=== PATIENT | male | born 1990 | race Caucasian/White ===

== ENCOUNTER 2020-08-13 11:34 | Emergency (ER) | payer SELFPAY ==
[2020-08-13 12:15] VITALS: BP 176/107; PULSE 95; RESP 21; TEMP 37.1; O2SAT 99; BMI 31.9
[2020-08-13 12:23] VITALS: BP 176/107; PULSE 95; RESP 21; TEMP 37.1; O2SAT 99
--- NOTE | 2020-08-13 12:23 | HMH.EDUTC ---
[facility] Disposition Clinical Impression: Encounter for laboratory testing for COVID-19 virus Disposition: Home, Self-Care Condition on Discharge: Good Instructions: DI for COVID-19 (Suspected or Confirmed ), Coronavirus Disease 2019, Preventing the Spread of Coronavirus Discharge Instructions Additional Instructions: *Monitor Temp, Over the counter Motrin or Tylenol as directed/as needed Tylenol every 4 hours and Motrin every 6 hours (as long as your family doctor has told you that you can take it) for fever or pain. and straight to ER if unable to lower temp less than 101.0 after medication given Follow up IMMEDIATELY for new or worsening symptoms or no Noticeable improvement over the next 48-72 hours. 911 for difficulty breathing or swallowing You were tested for today for COVID19 your test result should be back in the next 24-48 hours, you may call to the [facility] to see if your test results are back in the next 48 hours [phone] [facility] hours are 9am-9pm You was given a handout with instructions for Self Quarantine and Self isolation for while you wait on test results and what to do if they are positive If you are positive the Health Dept will be contacting you also Referrals: PCP,No [Primary Care Provider] - As needed Forms: Work/School Release Time of Disposition: 12:27 Medical Decision Making - Leonardo Inquiry Pt receiving controlled substance: No Leonardo was queried for this patient: No Vital Signs: 08/13/20 12:15 Temperature 98.7 F Temperature Source Oral Pulse Rate [Right Brachial] 95 H Respiratory Rate 21 Blood Pressure [Right Arm] 176/107 H Blood Pressure Mean [Right Arm] 130 Blood Pressure Source [Right Arm] Automatic Cuff Blood Pressure Position [Right Arm] Sitting 02 Sat by Pulse Oximetry 99 Oxygen Delivery Method Room Air Orders (Tests/Meds): ORDERS Category Date Time Status Covid-19 Nasal PCR Sendout P&C Stat Lab 08/13/20 11:37 Ordered Medical Decision Narrative: Patient report thinks his blood pressure is up due to being aggravated trying to get back to work reports wants to get checked and tested and will follow up with his PCP if his blood pressure is still elevated [facility] HPI - General Stated complaint: Covid test Time Seen by Provider: 08/13/20 12:23 Mode of Arrival: Ambulatory Source of Information: Patient Limitations: No Limitations Description of Symptoms (Recalled from Triage Doc. by RN): PATIENT STATES HIS JOB IS REQUESTING HIM TO GET HIS THROAT AND EARS CHECKED BEFORE RETURNING TO WORK D/T HIM HAVING A FEVER. REPORTS 2 RECENT NEGATIVE COVID TEST HEENT Symptoms (Recalled from RN notes): No Resp Symptoms (Recalled from RN notes): No Skin Symptoms (Recalled from RN notes): No MS Symptoms (Recalled from RN notes): No Functional Status (Recalled from RN notes): WNL - History of Present Illness Provider Complaint: Patient states that his blood pressure is up because he is aggrivated State that work wanted him to come and get checked out again before they would let him return to work States that he was exposed to COVID a couple weeks ago and has had two test last week that was negative but they wanted him to come get checked again due to he had a low grade fever last week at work Denies any symptoms - Related Data Previous Rx's Medication Instructions Recorded Minocycline HCl [Minocycline HCl 100 mg PO BID #20 tab 05/07/19 100mg Tab*] Allergies Allergy/AdvReac Type Severity Reaction Status Date / Time No Known Allergies Allergy Verified 11/14/18 21:59 - Worker's Comp Is this a Worker's Comp case?: No [facility] History - Hepatitis A Screen Drug use history?: No High risk sexual behaviors?: No History of sexually transmitted infection?: No Currently employed?: No Childcare worker?: No Do you have indoor plumbing?: Yes Do you have electricity?: Yes Attestation statement:: This patient has been screened for Hepatitis A risk factors. I have reviewed the
[2020-08-14 08:39] LABS: Covid-19 Nasal PCR Sendout P&C NEGATIVE
== END 2020-08-13 12:39 | disposition home or self-care (01) ==
PROVIDERS: Emergency Provider Nurse Practitioner
DX: Z20.822 Contact with and (suspected) exposure to COVID-19 (principal); R03.0 Elevated blood-pressure reading, without diagnosis of hypertension
CPT/HCPCS: 99202; G0463; U0004

== ENCOUNTER 2021-02-04 22:57 | Emergency (ER) | payer SELFPAY ==
[2021-02-04 23:21] VITALS: BP 210/105; PULSE 132; RESP 20; TEMP 37.9; O2SAT 99; BMI 32.8
--- NOTE | 2021-02-05 00:15 | XR_ITS ---
PROCEDURE INFORMATION: Exam: XR Left Shoulder Exam date and time: 02/05/2021 12:15 AM Age: 30 years old Clinical indication: Patient HX: PT pulled on an object working and now left shoulder pain; Additional info: Pain from pulling TECHNIQUE: Imaging protocol: XR Left shoulder. Views: 2 or more views. COMPARISON: No relevant prior studies available. FINDINGS: Bones/joints: Multiple irregular calcific densities noted superior to the proximal humerus including probably within supraspinatus tendon, compatible with calcific tendinopathy. No acute fracture or malalignment. Soft tissues: Normal. IMPRESSION: 1. Findings compatible with calcific tendinopathy, as above. 2. No acute fracture or malalignment.
--- NOTE | 2021-02-05 00:50 | HMH.EDUPEXT ---
ED Disposition Clinical Impression: Left shoulder tendonitis Acute shoulder bursitis Qualifiers: Laterality: left Qualified Code(s): M75.52 - Bursitis of left shoulder Hypertension Qualifiers: Hypertension type: primary hypertension Qualified Code(s): I10 - Essential (primary) hypertension Disposition: Home, Self-Care Condition on Discharge: Good Instructions: DI for Bursitis Additional Instructions: use meds and see pcp and ortho for follow up Prescriptions: predniSONE [Prednisone 20mg Tab] 20 mg PO BID #10 tab Transmission Status: Pending to [facility] #[id number] Ketorolac Tromethamine [Toradol 10mg tablet] 10 mg PO Q6HP PRN #10 tab MDD 40mg/day PRN Reason: Moderate To Severe Pain Transmission Status: Pending to [facility] #[id number] Referrals: Provider,Referral, [Primary Care Provider] - - Critical Care Critical Care Time: No Attestation: On 02/04/21, the high probability of a clinically significant, sudden or life threatening deterioration of the following system(s) required my full and direct attention, intervention and personal management. The time I documented below is in addition to time spent performing reported procedures but includes the following listed in this critical care notation. Medical Decision Making - Medical Records Medical records reviewed: Yes: I reviewed the patient's medical records. - Leonardo Inquiry Pt receiving controlled substance: No Vital Signs: 02/04/21 23:21 Temperature 100.3 F H Temperature Source Oral Pulse Rate [Right] 132 H Respiratory Rate 20 Blood Pressure [Right Arm] 210/105 H Blood Pressure Mean [Right Arm] 140 Blood Pressure Source [Right Arm] Manual Cuff/ Auscultation Blood Pressure Position [Right Arm] Sitting 02 Sat by Pulse Oximetry 99 Oxygen Delivery Method Room Air Orders (Tests/Meds): ED MEDICATIONS Discontinued Medications Generic Name Dose Route Start Last Admin Trade Name Freq PRN Reason Stop Dose Admin Clonidine HCl 0.2 mg 02/05/21 09:00 Clonidine 0.2mg Tablet PO 03/07/21 08:59 TID SIMIN Clonidine HCl 0.2 mg 02/05/21 00:56 02/05/21 00:57 Clonidine 0.2mg Tablet PO 02/05/21 00:57 0.2 mg ONCE ONE Administration Dexamethasone Sodium Phosphate 8 mg 02/05/21 01:06 02/05/21 01:11 Dexamethasone 4mg/Ml 1ml Vial IM 02/05/21 01:07 8 mg ONCE ONE Administration Ketorolac Tromethamine 60 mg 02/05/21 01:06 02/05/21 01:11 Ketorolac 60mg/2ml Vial IM 02/05/21 01:07 60 mg ONCE ONE Administration ORDERS Category Date Time Status XR shoulder LT min 2V Stat Exams 02/05/21 00:15 Taken - Radiology Data #1 Image(s): Shoulder Image Reviewed: Yes I reviewed the patient's radiology image Preliminary Findings: Abnormal (ca tendonitis ) Medical Decision Narrative: has acute lt shoulder pain prob bursitis/tendonitis - discussed bp with pt Upper Extremity HPI - General Chief Complaint: Extremity Injury, Upper Stated Complaint: [id number] injured lt shoulder Time Seen by Provider: 02/05/21 00:20 Mode of Arrival: Ambulatory Source of Information: Patient, Medical Record Limitations: No Limitations Description of Symptoms (Recalled from ER Triage Doc. by RN): Pt states he hurt his left shoulder yesterday morning, but he's not sure how. pt unable to lift arm without pain. No visible deformities noted. Pt is hypertensive, states he's not taking anything for his HTN, but he is supposed to. - History of Present Illness HPI narrative: pt with acute lt shoulder pain which has been progressive tonight with marked dec rom - does do multiple tasks at work with pulling and lifting and pushing MD complaint: injury to: left, shoulder Onset (ago): day(s) Other Extremity Injury: Left: shoulder Handedness: right Place: work Severity: moderate Exacerbating factors: movement of extremity Associated symptoms: denies other symptoms - Related Data Previous Rx's Medi
[2021-02-05 01:31] VITALS: BP 199/139; PULSE 89; RESP 18; TEMP 37.7; O2SAT 97
== END 2021-02-05 01:35 | disposition home or self-care (01) ==
PROVIDERS: Emergency Provider Emergency Medicine
DX: M75.52 Bursitis of left shoulder (principal); F17.210 Nicotine dependence, cigarettes, uncomplicated; X50.0XXA Overexertion from strenuous movement or load, initial encounter; Y92.69 Other specified industrial and construction area as the place of occurrence of the external cause; Y99.0 Civilian activity done for income or pay
CPT/HCPCS: 73030; 96372; 99282

== ENCOUNTER 2022-08-03 16:59 | Emergency (ER) | payer MEDICAID, SELFPAY ==
[2022-08-03 16:59] VITALS: BP 209/131; PULSE 124; RESP 18; TEMP 36.7; O2SAT 97; BMI 33.4
[2022-08-03 17:13] VITALS: BMI 33.4
--- NOTE | 2022-08-03 17:13 | ECG_ITS ---
APPROVED REPORT Exam: Resting ECG HR:119 bpm ECG Measurements Heart Rate 119 AXES [place] 132 P 56 QRSd 110 QRS 50 QT 313 T -1 QTc 384 Conclusion SINUS TACHYCARDIA POSSIBLE RIGHT VENTRICULAR CONDUCTION DELAY [RSR (QR) IN V1/V2] NONSPECIFIC ST & T-WAVE ABNORMALITY ABNORMAL RHYTHM ECG UNCONFIRMED REPORT Electronically signed by : Pacheco Jacobo MD 08/04/2022 10:17:40
[2022-08-03 17:46] LABS: Chloride 102 mmol/L (98-107); Potassium 3.9 mmoL/L (3.5-5.1); Sodium 140 mmol/L (136-145)
[2022-08-03 17:48] LABS: Alanine Aminotransferase 44 U/L (12-78); Aspartate Amino Transferase 36 U/L (17-59); Blood Urea Nitrogen 14 mg/dl (9-20); Creatinine Clearance Estimated 214 mL/min (50-200); Estimated Glomerular Filt Rate 131 ml/min (>60); GFR (African American) 158 ML/MIN (>60)
[2022-08-03 17:49] LABS: Albumin Level 4.3 g/dl (3.5-5.0); Albumin/Globulin Ratio 1.5 (1.1-1.8); Alkaline Phosphatase 69 U/L (38-126); Anion Gap 11.9 mEq/L (5-15); Basophils # 0.2 K/mm3 (0-0.2); Basophils % 1.2 % (0.1-2.0); Bilirubin,Total 0.3 mg/dl (0.2-1.3); Calcium 8.6 mg/dl (8.4-10.2); Carbon Dioxide 30 mmol/L (22.0-30.0); Eosinophils # 0.3 K/mm3 (0.0-0.4); Eosinophils % 2.1 % (0.1-12.0); Globulin 2.8 g/dL (1.3-3.2); Glucose 112 mg/dl (74-100); Hematocrit 42.7 % (42.0-52.0); Hemoglobin 13.7 g/dL (14.1-18.0); Lymphocytes # 3.2 K/mm3 (0.7-4.5); Lymphocytes % 25.6 % (10-50); Mean Corpuscular HGB Conc 32.2 g/dL (31.8-35.4); Mean Corpuscular Hemoglobin 28.8 pg (27.0-31.2); Mean Corpuscular Volume 89.4 fl (80-94); Mean Platelet Volume 7.3 fl (7.4-10.4); Monocytes # 0.6 K/mm3 (0.1-1.0); Monocytes % 4.8 % (1.7-9.3); Neutrophils # 8.4 K/mm3 (1.8-7.8); Neutrophils % 66.3 % (37.0-80.0); Platelet Count 454 K/mm3 (142-424); Red Blood Count 4.78 M/mm3 (4.60-6.20); Red Cell Distribution Width 13.9 % (11.5-17.5); Total Protein,Serum 7.1 g/dl (6.3-8.2); White Blood Count 12.7 K/mm3 (4.8-10.8)
[2022-08-03 18:00] VITALS: BP 173/110; PULSE 113; RESP 20; O2SAT 97
--- NOTE | 2022-08-03 18:45 | PC.NURSE ---
PT RESTING, NO NEEDS AT THIS TIME
--- NOTE | 2022-08-03 18:49 | HMH.EDGENADL ---
Discharge Plan Disposition Patient Disposition: Home, Self-Care Condition: Good Prescriptions Prescriptions: New losartan 50 mg tablet 50 mg PO DAILY Qty: 30 0RF No Action prednisone 20 MG tablet 20 mg PO BID Qty: 10 0RF ketorolac 10 MG tablet 10 mg PO Q6HP MDD 40mg/day PRN (Reason: Moderate To Severe Pain) Qty: 10 0RF Rx Instructions: Therapy initiated with IV/IM dose lisinopril 10 MG tablet 10 mg PO DAILY Qty: 30 0RF minocycline 100 MG tablet 100 mg PO BID Qty: 20 0RF Referrals Follow up/Referrals: Provider,Referral, MD [Primary Care Provider] - See instructions Activity Restrictions/Add. Instructions Additional Instructions/Restrictions: Medication as directed. Follow-up PCP in 1 to 2 days. Do not run out of your blood pressure medication. Return to the ER for chest pain, shortness of breath, headache, visual change. Clinical Impressions Clinical Impression: HTN (hypertension) Discharge ED Provider: Baldev Harp General Adult HPI General Chief complaint: Recheck/Abnormal Lab/Rx Stated complaint: elevated bp Time Seen by Provider: 08/03/22 17:58 Mode of Arrival: Ambulatory Source of Information: Patient Limitations: No Limitations Description of Symptoms (Recalled from ER Triage Doc. by RN): PT TO ED WITH ELEVATED B/P. ELEVATED ON WEDNESDAY AT PCP OFFICE, NO RX GIVEN. PT WITHOUT SYMPTOMS History of Present Illness HPI narrative: 31yo M presents to the emergency department secondary to elevated blood pressure. Patient states he has had elevated blood pressure since high school. Has been on medication in the past but ran out roughly 2 years ago and had no health insurance. Was attempting to get a job when his preemployment physical discovered his blood pressure and directed him to a PCP office. PCP saw blood pressure and directed him to the emergency department. Patient denies any pain, shortness of breath. Denies any recent illness. Related Data Previous Rx's Medication Instructions Recorded minocycline 100 mg tablet 100 mg PO BID #20 tabs 05/07/19 ketorolac 10 mg tablet 10 mg PO Q6HP PRN Moderate To 02/05/21 Severe Pain #10 tabs lisinopril 10 mg tablet 10 mg PO DAILY #30 tabs 02/05/21 prednisone 20 mg tablet 20 mg PO BID #10 tabs 02/05/21 losartan 50 mg tablet 50 mg PO DAILY #30 tabs 08/03/22 Allergies Allergy/AdvReac Type Severity Reaction Status Date / Time No Known Allergies Allergy Verified 11/14/18 21:59 [facility] Disclaimer: The information contained in this section may have been updated after the patient was seen, as this information can be updated by other users. Social History Smoking Status: Current every day smoker tobacco type: cigarettes packs per day: 1 alcohol intake: never current occupational status: employed Travel in the last 8 weeks: None ROS Obtained: Yes Systems reviewed as appropriate & no additional complaints except as documented Physical Exam General General appearance: alert and in no apparent distress Head Head exam: atraumatic Eye Eye exam: Present PERRL ENT ENT exam: Present normal oropharynx Neck Neck exam: Present trachea midline Chest Chest inspection: Present normal inspection Respiratory Respiratory exam: Present normal lung sounds bilaterally and respiratory distress Cardiovascular Cardiovascular exam: Present normal rhythm and tachycardia Abdominal Exam Abdominal exam: Present soft; Absent tenderness or guarding Extremities Exam Extremities exam: Present normal inspection and normal capillary refill; Absent tenderness or edema Neurological Exam Neurological exam: Present alert, oriented X3, CN II-XII intact and normal gait Psychiatric Psychiatric exam: Present normal affect and normal mood Skin Skin exam: Present warm, dry and intact Medical Decision Making Medical Records Medical records reviewed: Yes I reviewed the patient's medical recor
--- NOTE | 2022-08-03 18:49 | PC.NURSE ---
DR. WOODARD AT BEDSIDE TO UPDATE PT
[2022-08-03 19:04] VITALS: BP 165/110; PULSE 103; RESP 18; TEMP 36.7; O2SAT 98
== END 2022-08-03 19:05 | disposition home or self-care (01) ==
PROVIDERS: Emergency Provider Family Medicine
DX: I10 Essential (primary) hypertension (principal); F17.210 Nicotine dependence, cigarettes, uncomplicated
CPT/HCPCS: 80053; 85025; 93005; 96374; 99285

== ENCOUNTER 2023-03-10 22:18 | Emergency (ER) | payer MEDICAID, SELFPAY ==
[2023-03-10 22:20] VITALS: BP 183/125; PULSE 98; RESP 18; TEMP 36.8; O2SAT 99; BMI 32.6
--- NOTE | 2023-03-10 22:25 | ECG_ITS ---
APPROVED REPORT Exam: Resting ECG HR:99 bpm ECG Measurements Heart Rate 99 AXES [place] 145 P 50 QRSd 113 QRS 58 QT 346 T -9 QTc 402 Conclusion SINUS RHYTHM POSSIBLE RIGHT VENTRICULAR CONDUCTION DELAY [RSR (QR) IN V1/V2] LEFT VENTRICULAR HYPERTROPHY AND ST-T CHANGE [VOLTAGE CRITERIA PLUS ST/T ABNORMALITY] ABNORMAL ECG UNCONFIRMED REPORT Electronically signed by : Pacheco Jacobo MD 03/12/2023 08:41:30
[2023-03-10 22:32] VITALS: BP 183/125; PULSE 92; RESP 16; O2SAT 98
[2023-03-10 23:00] VITALS: BP 164/115; PULSE 90; RESP 14; O2SAT 96
--- NOTE | 2023-03-10 23:13 | HMH.EDGENADL ---
Discharge Plan Disposition Patient Disposition: Home, Self-Care Prescriptions Prescriptions: New lisinopril-hydrochlorothiazide 20-25 mg tablet 1 tab PO DAILY Qty: 30 3RF No Action buprenorphine-naloxone 8-2 mg tablet, sublingual 1 tab sublingual DAILY carvedilol [Coreg] 25 mg tablet 25 mg PO BID Rx Instructions: must administer with a meal/food Referrals Follow up/Referrals: Victorino David APRN [Primary Care Provider] - See instructions Lisset Walton MD [Referring] - See instructions (secondary hypertension workup) Alli Gonzalez MD [Staff Physician] - See instructions (Primary versus secondary hypertension, needs further work-up, possible endocrinology versus nephrology referrals. Medications changed to carvedilol 50 twice daily and HCTZ 20/lisinopril 25 daily on 03/11. Evidence of LVH on EKG) Activity Restrictions/Add. Instructions Additional Instructions/Restrictions: Call your family provider to establish care for this visit to the emergency department and schedule follow-up within 48 hours to ensure improvement. If you have any worsening of your condition or any other concerning signs or symptoms, return to the emergency department or your primary care doctor for further evaluation. Be sure to discuss antihypertensive medications. Also discussed with them having outpatient referral for both cardiology and nephrology versus endocrinology for working you up for secondary causes of hypertension. You do not need to come to the emergency department to have these referrals placed, and this can be done from your primary care provider's office. Cardiology referral has been placed and information is available here. Take lisinopril/hydrochlorothiazide once daily. Increase carvedilol to 50 mg twice daily. Clinical Impressions Clinical Impression: Asymptomatic hypertension Discharge ED Provider: Mir Rodriguez General Adult HPI General Chief complaint: Arrhythmia/Palpitations Stated complaint: checked heart rate Time Seen by Provider: 03/10/23 22:57 Mode of Arrival: Ambulatory Limitations: No Limitations Description of Symptoms (Recalled from ER Triage Doc. by RN): patient ambulatory to ED for elevated heart rate. Patient saw PCP 02/25/23 and was prescribed Carvedilol 25mg BID for same issue. Patient was told by PCP that he needed to come to ER in order to obtain [employer] Inspector referral. Patient denies chest pain, SOA, numbness, or tingling. History of Present Illness HPI narrative: This is a 32-year-old male with history of hypertension of unknown etiology presenting with hypertension. Patient states that he was seen by his primary care doctor about 2 weeks prior to arrival. At that time, was found be hypertensive and tachycardic. Per patient, instead of managing this in his office, primary care provider recommended patient come to the emergency department in order to receive cardiology referral. Patient denies chest pain, shortness of breath, nausea or vomiting, headaches, vision changes, neurologic deficits, fevers or chills, imbalance, confusion, PND, orthopnea, lower extremity swelling, or any other concerns. States that today was his first day he had available to come to the emergency department at his primary care recommendation. Related Data Home Medications Medication Instructions Recorded Confirmed buprenorphine 8 mg-naloxone 2 mg 1 tab sublingual DAILY . 02/25/23 03/10/23 sublingual tablet carvedilol 25 mg tablet (Coreg) 25 mg PO BID Hypertension 03/10/23 03/10/23 Previous Rx's Medication Instructions Recorded lisinopril 20 1 tab PO DAILY #30 tabs 03/11/23 mg-hydrochlorothiazide 25 mg tablet Allergies Allergy/AdvReac Type Severity Reaction Status Date / Time No Known Allergies Allergy Verified 02/25/23 16:03 [facility] Disclaimer: The information contained in this section may have been updated after the patient was seen, as this information can be updated by othe
[2023-03-10 23:30] VITALS: BP 166/109; PULSE 86; RESP 12; O2SAT 97
[2023-03-10 23:47] LABS: Microscopic, Urine URINE MICROSCOPIC (MICROSCOPIC)
[2023-03-10 23:50] LABS: Alanine Aminotransferase 46 U/L (12-78); Albumin Level 4.4 g/dl (3.5-5.0); Albumin/Globulin Ratio 1.4 (1.1-1.8); Alkaline Phosphatase 70 U/L (38-126); Anion Gap 9.6 mEq/L (5-15); Aspartate Amino Transferase 37 U/L (17-59); Basophils # 0.1 K/mm3 (0-0.2); Basophils % 0.5 % (0.1-2.0); Blood Urea Nitrogen 12 mg/dl (9-20); Carbon Dioxide 32 mmol/L (22.0-30.0); Chloride 102 mmol/L (98-107); Cholesterol 197 mg/dl (140-200); Creatinine Clearance Estimated 207 mL/min (50-200); Eosinophils # 0.3 K/mm3 (0.0-0.4); Eosinophils % 2.5 % (0.1-12.0); Estimated Glomerular Filt Rate 130 ml/min (>60); GFR (African American) 157 ML/MIN (>60); Globulin 3.1 g/dL (1.3-3.2); Glucose 88 mg/dl (74-100); HDL Cholesterol 33 mg/dl (40-60); Hematocrit 46.7 % (42.0-52.0); Hemoglobin 14.6 g/dL (14.1-18.0); Lymphocytes % 29.2 % (10-50); Mean Corpuscular HGB Conc 31.3 g/dL (31.8-35.4); Mean Corpuscular Hemoglobin 28.3 pg (27.0-31.2); Mean Corpuscular Volume 90.4 fl (80-94); Monocytes # 0.7 K/mm3 (0.1-1.0); Monocytes % 6.8 % (1.7-9.3); Neutrophils # 6.3 K/mm3 (1.8-7.8); Neutrophils % 60.9 % (37.0-80.0); Platelet Count 401 K/mm3 (142-424); Potassium 3.6 mmoL/L (3.5-5.1); Red Blood Count 5.16 M/mm3 (4.60-6.20); Red Cell Distribution Width 13.7 % (11.5-17.5); Sodium 140 mmol/L (136-145); Total Protein,Serum 7.5 g/dl (6.3-8.2); Triglycerides 236 mg/dl (30-150); VLDL Cholesterol 47 mg/dL (0-40); White Blood Count 10.3 K/mm3 (4.8-10.8)
[2023-03-10 23:51] LABS: Appearance,Urine CLEAR (Clear); Bilirubin,Urine Negative (Negative); Blood, Urine Negative (Negative); Color,Urine YELLOW (Yellow); Glucose,Urine (UA) Negative (Negative); Ketones,Urine Negative (Negative); Leukocyte Esterase,Urine Negative (Negative); Nitrate,Urine Negative (Negative); PH,Urine 6.5 (5.0-8.5); Protein,Urine Negative (Negative); Specific Gravity, Urine <= 1.005 (1.005-1.030); Urobilinogen,Urine 0.2 EU/dl (0.2)
[2023-03-10 23:57] LABS: Bilirubin,Total 0.1 mg/dl (0.2-1.3)
[2023-03-11] LABS: Direct LDL Cholesterol 109.85 mg/dL (100-129)
[2023-03-11 00:05] LABS: Squamous Epithelial Cell,Urine Occasional #/hpf (0-5)
[2023-03-11 00:07] LABS: Hemoglobin A1C 5.9 % (4.0-6.0)
[2023-03-11 00:09] LABS: T4 (Thyroxine) 10.6 ug/dl (5.53-11.0)
[2023-03-11 00:19] VITALS: BP 176/118; PULSE 77; RESP 14; O2SAT 99
--- NOTE | 2023-03-11 00:22 | PC.NURSE ---
Rounded on patient, no needs at this time, call light within reach
[2023-03-11 00:44] VITALS: BP 161/107; PULSE 75; RESP 18; TEMP 36.4; O2SAT 98
== END 2023-03-11 00:45 | disposition home or self-care (01) ==
PROVIDERS: Emergency Provider Emergency Medicine; PCP Nurse Practitioner Family
DX: I10 Essential (primary) hypertension (principal); F17.210 Nicotine dependence, cigarettes, uncomplicated
CPT/HCPCS: 80053; 80061; 81001; 83036; 84436; 84443; 85025; 93005; 99285

== ENCOUNTER 2023-07-04 03:37 | Emergency (ER) | payer BC, SELFPAY ==
[2023-07-04 03:38] VITALS: BP 168/107; PULSE 105; RESP 14; TEMP 36.5; O2SAT 100; BMI 31.9
--- NOTE | 2023-07-04 04:10 | HMH.EDGENADL ---
Discharge Plan Disposition Patient Disposition: Home, Self-Care Condition: Good Prescriptions Prescriptions: New lisinopril-hydrochlorothiazide 20-25 mg tablet 1 tab PO DAILY Qty: 30 0RF carvedilol 25 mg tablet 25 mg PO BID Qty: 60 0RF Rx Instructions: must administer with a meal/food No Action buprenorphine-naloxone 8-2 mg tablet, sublingual 1 tab sublingual DAILY carvedilol [Coreg] 25 mg tablet 25 mg PO BID Rx Instructions: must administer with a meal/food lisinopril-hydrochlorothiazide 20-25 mg tablet 1 tab PO DAILY Qty: 30 3RF Referrals Follow up/Referrals: Richard Stout DO [Primary Care Provider] - See instructions Activity Restrictions/Add. Instructions Additional Instructions/Restrictions: You were evaluated in the emergency department today. Please follow-up closely with your primary care provider. Return to the emergency department for new or worsening symptoms. Clinical Impressions Clinical Impression: Encounter for medication refill HTN (hypertension) Qualifiers: Hypertension type: unspecified Qualified Code(s): I10 - Essential (primary) hypertension Discharge ED Provider: Cary Fuentes General Adult HPI General Chief complaint: Recheck/Abnormal Lab/Rx Stated complaint: high blood pressure Time Seen by Provider: 07/04/23 03:54 Mode of Arrival: Ambulatory Source of Information: Patient Limitations: No Limitations Description of Symptoms (Recalled from ER Triage Doc. by RN): Pt ambulatory to ED for medication refill. He states that he missed his follow up appt with PCP on 07/02 for HTN meds and rescheduled appt for 07/13. Patient states that he took last dose of carvedilol and lisinopril 07/03. Pt denies any signs of symptoms of high pressure at present. History of Present Illness HPI narrative: This patient is a 32-year-old male with a history of asymptomatic hypertension presenting to the emergency department for evaluation requesting a medication refill. Patient states that he was supposed to follow-up with his PCP 07/02/2023 for refills of his carvedilol and lisinopril/HCTZ, however he overslept and missed his appointment. He states that he just got off of second shift and came in for refills of his medicine. He denies any concerns or complaints. He states that he has been feeling fine. No issues noted at this time. Related Data Home Medications Medication Instructions Recorded Confirmed buprenorphine 8 mg-naloxone 2 mg 1 tab sublingual DAILY . 02/25/23 03/10/23 sublingual tablet carvedilol 25 mg tablet (Coreg) 25 mg PO BID Hypertension 03/10/23 03/10/23 Previous Rx's Medication Instructions Recorded lisinopril 20 1 tab PO DAILY #30 tabs 03/11/23 mg-hydrochlorothiazide 25 mg tablet carvedilol 25 mg tablet 25 mg PO BID #60 tabs 07/04/23 lisinopril 20 1 tab PO DAILY #30 tabs 07/04/23 mg-hydrochlorothiazide 25 mg tablet Allergies Allergy/AdvReac Type Severity Reaction Status Date / Time No Known Allergies Allergy Verified 02/25/23 16:03 [facility] Disclaimer: The information contained in this section may have been updated after the patient was seen, as this information can be updated by other users. Social History Smoking Status: Current every day smoker tobacco type: cigarettes packs per day: 1 alcohol intake: never current occupational status: employed Travel in the last 8 weeks: None ROS Obtained: Yes All systems reviewed & no additional complaints except as documented Physical Exam General General appearance: alert and in no apparent distress Head Head exam: atraumatic and normocephalic Eye Eye exam: Present normal appearance, PERRL and EOMI ENT ENT exam: Present normal exam, normal oropharynx, mucous membranes moist and normal external ear exam Neck Neck exam: Present normal inspection, full ROM and trachea midline; Absent tenderness Chest Chest i
[2023-07-04 04:13] VITALS: BP 144/98; PULSE 108; RESP 14; TEMP 36.6; O2SAT 100
== END 2023-07-04 04:19 | disposition home or self-care (01) ==
PROVIDERS: Emergency Provider Emergency Medicine; PCP Internal Medicine
DX: I10 Essential (primary) hypertension (principal); F17.210 Nicotine dependence, cigarettes, uncomplicated
CPT/HCPCS: 99281

== ENCOUNTER 2023-08-04 12:13 | Outpatient (CLI) | payer BC, SELFPAY ==
[2023-08-04 12:40] LABS: Chloride 99 mmol/L (98-107); Sodium 140 mmol/L (136-145)
[2023-08-04 12:43] LABS: Alanine Aminotransferase 38 U/L (12-78); Albumin Level 4.4 g/dl (3.5-5.0); Albumin/Globulin Ratio 1.6 (1.1-1.8); Alkaline Phosphatase 65 U/L (38-126); Aspartate Amino Transferase 33 U/L (17-59); Bilirubin,Total 0.3 mg/dl (0.2-1.3); Blood Urea Nitrogen 15 mg/dl (9-20); Carbon Dioxide 34 mmol/L (22.0-30.0); Estimated Glomerular Filt Rate 130 ml/min (>60); GFR (African American) 157 ML/MIN (>60); Globulin 2.7 g/dL (1.3-3.2); Total Protein,Serum 7.1 g/dl (6.3-8.2)
[2023-08-04 12:44] LABS: Calcium 9.3 mg/dl (8.4-10.2); Glucose 120 mg/dl (74-100)
== END 2023-08-04 23:59 ==
LOC: LAB.DROPOF 12:14
PROVIDERS: PCP Family Medicine; Visit Provider Family Medicine
DX: Z00.00 Encounter for general adult medical examination without abnormal findings (principal); I11.9 Hypertensive heart disease without heart failure; G47.30 Sleep apnea, unspecified; R40.0 Somnolence; R53.83 Other fatigue; R00.0 Tachycardia, unspecified; Z72.0 Tobacco use
CPT/HCPCS: 80053

== ENCOUNTER 2023-12-14 22:24 | Emergency (ER) | payer BC, SELFPAY ==
--- NOTE | 2023-12-14 22:29 | ED_ITS ---
<Statement entered by Cary Fuentes DO - 12/14/23 22:52> I was consulted by the GILMA, and we discussed the complexity of the problems being addressed. I approved the treatment and management plan for this patient's care in the emergency department, thus performing a substantive portion of the medical decision making. Cary Fuentes DO Discharge Plan Disposition Patient Disposition: Home, Self-Care Condition: Good Prescriptions Prescriptions: New amoxicillin-pot clavulanate 875-125 mg tablet 1 tab PO BID Qty: 20 0RF No Action buprenorphine-naloxone 8-2 mg tablet, sublingual 1 tab sublingual DAILY (DME) blood pressure monitor [Blood Pressure Kit] Kit See Rx Instructions .ROUTE .MEDSUPPLY Qty: 1 0RF Rx Instructions: As directed amlodipine [Norvasc] 10 mg tablet 10 mg PO DAILY Qty: 30 2RF losartan-hydrochlorothiazide 50-12.5 mg tablet 1 tab PO DAILY Qty: 30 3RF carvedilol 25 mg tablet 50 mg PO BID Qty: 180 2RF Rx Instructions: must administer with a meal/food Referrals Follow up/Referrals: Bessie Carlisle APRN [Primary Care Provider] - See instructions Activity Restrictions/Add. Instructions Additional Instructions/Restrictions: Follow-up with dentistry as scheduled. He may return to ER for any worsening signs or symptoms. I would recommend Tylenol and Motrin every 4 hours alternating while you are awake Clinical Impressions Clinical Impression: Dental caries, Pain, dental Discharge ED Provider: Cary Fuentes General Adult HPI General Chief complaint: Dental/Oral Stated complaint: dental pain Time Seen by Provider: 12/14/23 22:29 History of Present Illness HPI narrative: Patient presents for evaluation of dental pain. Patient has known dental caries and had an appointment with his dentist today however he is in training for a new job that he cannot miss or risks losing the job so he had to cancel. He presents today because he reports that his pain is bad but also he missed out on antibiotics. He denies loss of taste or sense of smell. He denies headache fever chills hemoptysis hematochezia melena. Related Data Home Medications Medication Instructions Recorded Confirmed buprenorphine 8 mg-naloxone 2 mg 1 tab sublingual DAILY . 02/25/23 10/06/23 sublingual tablet Previous Rx's Medication Instructions Recorded blood pressure monitor (Blood #1 ea 08/04/23 Pressure Kit) amlodipine 10 mg tablet (Norvasc) 10 mg PO DAILY #30 tabs 10/06/23 carvedilol 25 mg tablet 50 mg (2 x 25 mg) PO BID BP #180 12/02/23 tabs losartan 50 mg-hydrochlorothiazide 1 tab PO DAILY htn #30 tabs 12/02/23 12.5 mg tablet amoxicillin 875 mg-potassium 1 tab PO BID #20 tabs 12/14/23 clavulanate 125 mg tablet Allergies Allergy/AdvReac Type Severity Reaction Status Date / Time No Known Allergies Allergy Verified 10/06/23 15:59 [facility] Disclaimer: The information contained in this section may have been updated after the patient was seen, as this information can be updated by other users. Social History Smoking Status: Current every day smoker tobacco type: cigarettes packs per day: 1 alcohol intake: never current occupational status: employed Travel in the last 8 weeks: None ROS Obtained: Yes Systems reviewed as appropriate & no additional complaints except as documented Physical Exam General General appearance: alert and in no apparent distress ENT ENT exam: Present other (Patient has severe dental caries, and at the lower left canine focally with gingival recession and erythema but no obvious abscess on palpation) Neck Neck exam: Present normal inspection and lymphadenopathy Chest Chest inspection: Present normal inspection and symmetric chest wall rise Respiratory Respiratory exam: Present normal lung sounds bilaterally Cardiovascular Cardiovascular exam: Present regular rate and normal rhythm Neurological Exam Neurological exam: Present alert and oriented X3 Medical Decision Making Medical Records Medical records reviewed: Yes I reviewed the patient's medical records. Leonardo Inquiry Pt receiving controlled substance: No Vital Signs: 12/14/23 22:31 Temperature 98.5 F Temperature Source Oral Pulse Rate [Left Radial] 95 H Respiratory Rate 16 Blood Pressure [Right Arm] 168/109 H Blood Pressure Mean [Right Arm] 128 02 Sat by Pulse Oximetry 99 Oxygen Delivery Method Room Air Orders (Tests/Meds): ED MEDICATIONS Discontinued Medications Generic Name Dose Route Start Last Admin Trade Name Freq PRN Reason Stop Dose Admin Amoxicillin/Clavulanate Potassium 1 each 12/14/23 22:34 Amoxicillin/Clavulanate Potassium 875/125mg Tablet PO 12/14/23 22:35 ONCE ONE Benzocaine/Butamben/Tetracaine HCl 1 gm 12/14/23 22:46 Tetracaine/Benzocaine/Butamben 56 Gm [place] TP 12/14/23 22:47 ONCE ONE Lidocaine HCl 15 ml 12/14/23 22:37 Lidocaine 2% Viscous Daniela 15ml Udc PO 12/14/23 22:38 ONCE ONE Medical Decision Narrative: In summary patient is a 33-year-old male who presents to the emergency department for evaluation of dental pain. Patient is hemodynamically stable upon arrival, afebrile. Physical exam is remarkable for significant dental caries but primarily at the left lower canine where he has significant gingival recession with necrotic appearing bone but no obvious abscess currently. Differential diagnosis includes dental caries versus dental abscess. I had an interactive discussion regarding initial workup and intervention including laboratory work dental block dental balls. Via patient directed decision making patient has elected to forego workup and except antibiotics and dental balls. Patient already has established an appointment with dentistry. I advised that the swelling or pain gets worse to return to the ER as needed. Patient had an appointment today but could not miss due to new employment Critical Care Critical Care Time Critical Care Time: No
[2023-12-14 22:31] VITALS: BP 168/109; PULSE 95; RESP 16; TEMP 36.9; O2SAT 99; BMI 33.4
[2023-12-14] MEDS: AMOXICILLIN/CLAVULANATE POTASSIUM 875/125MG TABLET 1 EACH PO (22:55)
[2023-12-14] MEDS: LIDOCAINE 2% VISCOUS SOL 15ML UDC 15 ML PO (22:57)
[2023-12-14] MEDS: TETRACAINE/BENZOCAINE/BUTAMBEN 56 GM SPRAY TP (22:57)
[2023-12-14 22:59] VITALS: BP 168/109; PULSE 95; RESP 20; TEMP 536.9; TEMP 998.5; O2SAT 99
== END 2023-12-14 23:04 | disposition home or self-care (01) ==
PROVIDERS: Emergency Provider Emergency Medicine; PCP Family Medicine
DX: K08.89 Other specified disorders of teeth and supporting structures (principal)
CPT/HCPCS: 99283

== ENCOUNTER 2025-07-25 08:33 | Outpatient (CLI) | payer MEDICAID, SELFPAY ==
[2025-07-25 15:32] LABS: Alanine Aminotransferase 33 U/L (12-78); Albumin Level 4.4 g/dl (3.5-5.0); Albumin/Globulin Ratio 1.6 (1.1-1.8); Alkaline Phosphatase 78 U/L (38-126); Anion Gap 11.0 mEq/L (5-15); Aspartate Amino Transferase 32 U/L (17-59); Bilirubin,Total 0.6 mg/dl (0.2-1.3); Blood Urea Nitrogen 13 mg/dl (9-20); Calcium 9.3 mg/dl (8.4-10.2); Carbon Dioxide 28 mmol/L (22.0-30.0); Chloride 103 mmol/L (98-107); Creatinine,Serum 0.90 mg/dl (0.66-1.25); Estimated Glomerular Filt Rate 96 ml/min (>60); GFR (African American) 116 ML/MIN (>60); Globulin 2.7 g/dL (1.3-3.2); Glucose 120 mg/dl (74-100); Potassium 4.0 mmoL/L (3.5-5.1); Sodium 138 mmol/L (136-145); Total Protein,Serum 7.1 g/dl (6.3-8.2)
[2025-07-25 17:39] LABS: Hemoglobin A1C 5.6 % (4.0-6.0)
--- OUTSIDE RECORDS SUMMARY | 2025-07-27 08:37 | XMS_ITS | Clinical Summary ---
Author Organization [facility] Address [address] [place], [place] [id number] Phone [email or web address] Care Team Providers Care Rn Paralegal Name Role Phone Unavailable Primary Care Provider Unavailabl e Allergies No known active allergies Medications carvedilol (COREG) 25 MG tablet TAKE 2 TABLETS TWICE DAILY WITH MEALS 4 Active losartan-hydroC HLOROthiazide (HYZAAR) 50-12.5 MG per tablet TAKE 1 TABLET BY MOUTH DAILY FOR HYPERTENSION 4 Active buprenorphine-n aloxone (SUBOXONE) 8-2 MG per SL tablet DISSOLVE 2 TABLETS UNDER THE TONGUE DAILY 4 Active Active Problems Problem Noted Date Diagnosed Date Opioid use disorder, moderate, in sustained dena ssion 12/28/2023 Visit for occupational health examination 2023 Social History Tobacco Use Types Packs/Day Years Used Date Smoking Tobacco: Every Day Cigarettes Smokeless Tobacco: Never Tobacco Cessation:Ready to Q uit: Not Asked; Counseling Given: Not Answered Intimate Partner Violence Answer Date R ecorded Insults You Not on file 11/06/2020 Threatens You Not on file 11/06/2020 Screams at You Not on file 11/06/2020 Physically Hurt Not on file 11/06/2020 Intimate Partner Violence Score Not on file 11/06/2020 Depression Answer Date Recorded PHQ Total Score 0 12/28/2023 Stress Answer Date Recorded Stress in your Life Not on file 05/28/2024 Dealing with Stress 3 05/28/2024 Sex and Gender Information Value Date Recorded Sex Assigned at Not on file Legal Sex Male 12:17 PM CDT Gender Identity Not on file Sexual Orientation Not on file Last Filed Vital Signs Vital Sign Reading Time Taken Comments Blood Pressure 142/88 12/28/2023 3:40 PM EDT Pulse 84 12/28/2023 3:40 PM EDT Temperature 36.1 C (97 F) 12/28/2023 3:40 PM EDT Respiratory Rate 12 12/28/2023 3:40 PM EDT Oxygen Saturation 97% 12/28/2023 3:40 PM EDT Inhaled Oxygen Concentration - - Weight 97.5 kg (215 lb) 04/19/2025 9:50 AM EDT Height 172.7 cm (5' 8 ) 04/19/2025 9:50 AM EDT Body Mass Index 32.69 04/19/2025 9:50 AM EDT Plan of Treatment Health Maintenance Due Date Last Done Comments Dental Cleaning/Exam 1989 HPV Immunization (1 - Male 3-dose series) 2004 Tetanus Diphtheria and Pertussis Immunization (1 - Tdap) 2008 Covid-19 Immunization (1 - season) 2025 Influenza Immunization (#1) 2025 MMR Immunization: At-Risk Member Discontinued 10/05/2001 Hepatitis B Immunization Completed 002, 11/03/2001, 10/05/2001 HIB Immunization Aged Out No longer e ligible based on patient's age to complete this topic Hepatitis A Immunization Aged Out No longer eligible based on patient's age to complete this topic Pneumococcal Immunization Aged Out No longer eligible based on patient's age to complete this topic Polio Immunization Aged Out No longer eligible based on patient's age to complete this topic Varicella Immunization Aged Out No lo nger eligible based on patient's age to complete this topic Insurance OPT OUT NO COPAY NB
== END 2025-07-25 23:59 | disposition home or self-care (01) ==
LOC: LAB.DROPOF 07-27 08:34
PROVIDERS: PCP Student in an Organized Health Care Education/Training Program; Visit Provider Student in an Organized Health Care Education/Training Program
DX: I10 Essential (primary) hypertension (principal); R73.03 Prediabetes
CPT/HCPCS: 80053; 83036